=== PATIENT | female | born 1955 ===

== ENCOUNTER 2016-09-29 10:03 | Emergency (ER) | payer MEDICAID ==
[2016-09-29 10:07] VITALS: TEMP 97.7
[2016-09-29] MEDS ORDERED: ONDANSETRON 4 MG/2 ML VIAL IVP ONE (10:19)
[2016-09-29] MEDS ORDERED: NS 1,000 ML IV ONE ×2 (10:19→12:14)
[2016-09-29] MEDS ORDERED: HYDROmorphONE/DILAUDID 1 MG/ML SYR IVP ONE (10:19)
--- NOTE | 2016-09-29 11:55 | EDPHY ---
H & P Stated Complaint: vomit headache LP here HPI/ROS: Chief complaint: Headache, recent lumbar puncture History of present illness: This is a 60-year-old female who presents to the emergency department for evaluation of a headache. Patient reports the onset of headache approximately over the last day. She describes a severe throbbing pain worse when she sits up or stands up. She did undergo a lumbar puncture approximately 5 days ago for evaluation of possible MS. It was performed at this hospital by interventional radiology. She denies other potential precipitating factors. She denies any alleviating factors. She denies other associated signs or symptoms including no fevers or cold symptoms, no history of recent trauma, no paresthesias, no weakness or paralysis, no bowel or bladder dysfunction. The headache was not thunderclap in nature. Review of systems: A 10 point review of systems was obtained and other than described above was negative - Personal History Current Tetanus/Diphtheria Vaccine: Unsure Current Tetanus Diphtheria and Acellular Pertussis (TDAP): Unsure - Medical/Surgical History Hx Asthma: No Hx Chronic Respiratory Disease: No Hx Diabetes: No Hx Cardiac Disease: No Hx Renal Disease: No Hx Cirrhosis: No Hx Alcoholism: No Hx HIV/AIDS: No Hx Splenectomy or Spleen Trauma: No Other PMH: denies - Social History Smoking Status: Former smoker - Physical Exam Exam: General Appearance: Alert, appears uncomfortable. Eyes: Pupils equal and round no injection. Respiratory: Chest is nontender, lungs are clear to auscultation. Cardiac: regular rate and rhythm. Gastrointestinal: Abdomen is soft and nontender, no masses, bowel sounds normal. Musculoskeletal: Neck is supple and nontender. Extremities have full range of motion and are nontender. Skin: No rashes or lesions. Neurological: Alert and oriented x4. Cranial nerves 2-12 grossly intact. Strength and sensation intact and symmetrical. Constitutional: Initial Vital Signs Temperature (C) 36.5 C 09/29/16 10:05 Heart Rate 91 09/29/16 10:05 Respiratory Rate 28 H 09/29/16 10:05 Blood Pressure 158/92 H 09/29/16 10:05 O2 Sat (%) 98 09/29/16 10:05 O2 Delivery Mode Room Air Allergies/Adverse Reactions: No Known Allergies Allergy (Unverified 09/29/16 10:05) Home Medications: Medication Instructions Recorded Ondansetron Odt [Zofran Odt 4 mg 4 mg PO Q4 #10 tab 09/29/16 (*)] Medical Decision Making ED Course/Re-evaluation: Patient seen under the supervision of my primary supervising physician Dr. Yeimi Field. Patient presents to the emergency department reporting a headache. Patient underwent lumbar puncture approximately 5 days ago by interventional radiology. She was doing well until the last day or so. She describes a global pain that is positional in nature. Physical exam is unremarkable including a nonfocal neurologic exam. I do believe this is consistent with a post LP headache. Patient is IV hydrated and symptomatically treated with pain medicine and antiemetics. Anesthesia has been consulted and has seen patient in the emergency department. He has offered patient a blood patch. She has declined. She is comfortable being discharged home. She will be discharged home with Zofran for nausea. Anesthesia has provided her with contact information in case she changes her mind and wants a blood patch. Home care is discussed. Strict return precautions are given. Patient voiced understanding and agreement with plan. Differential Diagnosis: Included but not limited to post LP headache, migraine headache, tension headache, chronic daily headache cluster headache, unlikely meningitis intracranial bleed or tumor - Data Points Medications Given: Discontinued Medications Hydromorphone HCl (Dilaudid) 1 mg IVP EDNOW ONE Stop: 09/29/16 10:20 Last Admin: 09/29/16 10:29 Dose: 1 mg Sodium Chloride (Ns) 1,000 mls @ 0 mls/hr IV ONCE ONE PRN Reason: Wide Open Stop: 09/29/16 10:20 Last Admin: 09/29/16 10:29 Dose: 1,000 mls Sodium Chloride (Ns) 1,000 mls @ 0 mls/hr IV ONCE ONE PRN Reason: Wide Open Stop: 09/29/16 12:15 Last Admin: 09/29/16 12:14 Dose: 1,000 mls Ondansetron HCl (Zofran) 4 mg IVP EDNOW ONE Stop: 09/29/16 10:20 Last Admin: 09/29/16 10:29 Dose: 4 mg Departure - Departure Disposition: Home, Routine, Self-Care Clinical Impression: Headache Qualifiers: Headache type: unspecified Headache chronicity pattern: acute headache Intractability: not intractable Qualified Code(s): R51 - Headache Condition: Good Instructions: Lumbar Puncture (ED) Additional Instructions: Follow-up with your primary care doctor for continued evaluation and care You were offered a blood patch today by anesthesia, you declined If you change your mind and want the blood patch you can return to the emergency room Drink plenty of fluids to stay hydrated Increase you caffeine intake If symptoms worsen or new symptoms develop return to the emergency department for recheck Referrals: NONE *PRIMARY CARE P,. [Primary Care Provider] - As per Instructions Reji Ray MD [Medical Doctor] - As per Instructions Stand Alone Forms: Work Excuse Prescriptions: Ondansetron Odt [Zofran Odt 4 mg (*)] 4 mg PO Q4 #10 tab
[2016-09-29 13:21] VITALS: BP 132/64; PULSE 84; RESP 18; O2SAT 94
== END 2016-09-29 13:40 | disposition home or self-care (01) ==
DX: R51 Headache (principal); Z87.891 Personal history of nicotine dependence
CPT/HCPCS: 96374; J1170; J2405